=== PATIENT | female | born 1940 | race Caucasian/White ===

== ENCOUNTER → 2018-07-01 | Outpatient (CLI) | payer MEDICARE, OTHER ==
[~2018-07-01] MED LIST: ALEN35 PO; ASPI81EC PO; BUDE6HFA INH; CIPR500 PO; NITR.4SL SL; TRAZ100 PO; [UNRECOGNIZED DRUG - CODE] PO
[2018-07-01 08:12] LABS: Adenovirus F 40/41 Not Detected (NOT DETECT); Astrovirus Not Detected (NOT DETECT); Campylobacter Sp Not Detected (NOT DETECT); Cryptosporidium Not Detected (NOT DETECT); Cyclospora Cayetanensis Not Detected (NOT DETECT); E. Coli O157 Not Detected (NOT DETECT); Entamoeba Histolytica Not Detected (NOT DETECT); Enteroaggregative E. coli-EAEC Not Detected (NOT DETECT); Enteropathogenic E. coli-EPEC Not Detected (NOT DETECT); Enterotoxigenic E. coli-ETEC Not Detected (NOT DETECT); Giardia Lamblia Not Detected (NOT DETECT); Norovirus GI/GII Not Detected (NOT DETECT); Plesiomonas Shigelloides Not Detected (NOT DETECT); Rotavirus A Not Detected (NOT DETECT); Salmonella Sp Not Detected (NOT DETECT); Sapovirus Not Detected (NOT DETECT); Shiga Toxin-prod E. coli-STEC Not Detected (NOT DETECT); Shigella/Enteroin E. coli-EIEC Not Detected (NOT DETECT); Vibrio Cholerae Not Detected (NOT DETECT); Vibrio Sp Not Detected (NOT DETECT); Yersinia Enterocolitica Not Detected (NOT DETECT)
== END | disposition home or self-care (01) ==
LOC: LAB 07:30 → LAB SHORT 07:30 → LAB FUT 06-25 10:05
PROVIDERS: Internal Medicine
DX: R19.7 Diarrhea, unspecified (principal)
CPT/HCPCS: 87507

== ENCOUNTER → 2019-03-21 | Outpatient (CLI) | payer MEDICARE, OTHER ==
[2019-03-21 09:59] LABS: Source, Urine Clean Catch
[2019-03-21 12:46] LABS: Bilirubin, Urine Neg (Neg); Blood, Urine 4+ (Neg); Glucose Qualitative, Urine Neg (Neg); Ketones, Urine Neg (Neg); Leukocyte Esterase, Urine 3+ (Neg); Nitrite, Urine Neg (Neg); Protein, Urine Neg (Neg); Urobilinogen, Urine NORM (Normal)
[2019-03-21 12:55] LABS: Appearance, Urine Clear (Clear); Color, Urine Yellow (P-Yellow)
[2019-03-21 12:56] LABS: Bacteria Mod /hpf; Squamous Epithelial Cells Few /hpf (Few); White Blood Cells, Urine 50-100 /hpf (0-5)
== END | disposition home or self-care (01) ==
LOC: LAB 09:58 → LAB SHORT 09:58
PROVIDERS: Internal Medicine
DX: R30.0 Dysuria (principal)
CPT/HCPCS: 81001; 87077; 87086; 87186

== ENCOUNTER 2019-07-17 07:21 | Day surgery (SDC) | payer MEDICARE, OTHER ==
[~2019-07-17] VITALS: Ht 162.6 cm; Wt 68.2 kg
[~2019-07-17 07:21] MED LIST changes: +AMLO5 PO; +Daily Multiple1 EACH PO; +Natural Vita200 UNIT PO; +Omega 3 1,0001 EACH PO; +Super Calcium600 MG PO; +VITAMIN D22000 UNIT PO; +Vitamin B-1250 MCG PO
--- NOTE | 2019-07-17 08:30 | NUR ---
07/17/19 [id number] Mikey Wallace FAMILY AT BEDSIDE. CALL LIGHT WITHIN REACH. AWARE OF PT'S PENICILLIN ALLERGY, OK TO GIVE ANCEF.
== END 2019-07-17 11:32 | disposition home or self-care (01) ==
LOC: ORSCSDS 07:21
PROVIDERS: Podiatrist Foot & Ankle Surgery
PROC: 0LBW0ZZ Excision of Left Foot Tendon, Open Approach (ICD-10-PCS; principal; 2019-07-17 08:45)
PROC: 0QSP04Z Reposition Left Metatarsal with Internal Fixation Device, Open Approach (ICD-10-PCS; principal; 2019-07-17 08:45)
PROC: 0L8W0ZZ Division of Left Foot Tendon, Open Approach (ICD-10-PCS; principal; 2019-07-17 08:45)
DX: M20.12 Hallux valgus (acquired), left foot (principal); M20.42 Other hammer toe(s) (acquired), left foot; M77.42 Metatarsalgia, left foot; M71.372 Other bursal cyst, left ankle and foot; I10 Essential (primary) hypertension; N18.9 Chronic kidney disease, unspecified; E78.5 Hyperlipidemia, unspecified; Z79.899 Other long term (current) drug therapy
CPT/HCPCS: 88304; C1713; C1769; J0171; J0690; J2250; J2704; J3010; J7120

== ENCOUNTER 2022-05-11 17:38 | Emergency (ER) | payer MEDICARE ==
[~2022-05-11] VITALS: Ht 162.6 cm; Wt 64.9 kg
== END 2022-05-11 20:30 | disposition home or self-care (01) ==
LOC: ER 17:38
DX: R07.81 Pleurodynia (principal); V49.40XA Driver injured in collision with unspecified motor vehicles in traffic accident, initial encounter; Z88.0 Allergy status to penicillin; Z91.012 Allergy to eggs; Z91.011 Allergy to milk products; Z91.018 Allergy to other foods; Z79.899 Other long term (current) drug therapy; J44.9 Chronic obstructive pulmonary disease, unspecified
CPT/HCPCS: 71101

== ENCOUNTER → 2022-08-17 | Outpatient (CLI) | payer MEDICARE, OTHER | END | disposition home or self-care (01) | LOC: LAB SHORT 08:20 | DX: R30.0 Dysuria (principal) | CPT/HCPCS: 87077; 87086; 87186 ==

== ENCOUNTER 2024-02-08 20:45 | Emergency (ER) | payer OTHER, MEDICARE ==
[~2024-02-08] VITALS: Ht 162.6 cm; Wt 67.6 kg
[~2024-02-08 20:45] MED LIST changes: +IBUP400 PO
[2024-02-08 20:49] VITALS: BP 169/94
[2024-02-08] MEDS ORDERED: Ketorolac Tromethamine 30mg Vial IM ONE (21:20)
== END 2024-02-08 21:25 | disposition home or self-care (01) ==
LOC: ER 20:45
DX: S51.851A Open bite of right forearm, initial encounter (principal); W54.0XXA Bitten by dog, initial encounter; Z88.0 Allergy status to penicillin; Z88.8 Allergy status to other drugs, medicaments and biological substances; Z91.012 Allergy to eggs; Z79.899 Other long term (current) drug therapy; I48.91 Unspecified atrial fibrillation
CPT/HCPCS: 73070; 96372; 99283-25; J1885